=== PATIENT | male | born 1985 | race African-American/Black ===

== ENCOUNTER 2022-01-12 19:05 | Emergency (ER) | payer MEDICAID ==
[~2022-01-12] VITALS: Ht 180.3 cm; Wt 70.0 kg
[2022-01-12] MEDS ORDERED: KETOROLAC 60MG/2ML VIAL IM ONE (19:15)
[2022-01-12] MEDS ORDERED: TETANUS, DIPHTHERIA, PERTUSSIS VAC/PF 0.5ML (>10YR OLD) IM ONE (19:15)
[2022-01-12] MEDS ORDERED: AMOX1TAB16 MT (20:03)
[2022-01-12] MEDS ORDERED: IBUP-2029 MT (20:03)
[2022-01-12 20:58] VITALS: BP 128/68
== END 2022-01-12 21:21 | disposition home or self-care (01) ==
LOC: ER 19:05
DX: S61.451A Open bite of right hand, initial encounter (principal); M94.0 Chondrocostal junction syndrome [Tietze]; W54.0XXA Bitten by dog, initial encounter; Y93.89 Activity, other specified; Y92.89 Other specified places as the place of occurrence of the external cause
CPT/HCPCS: 73130; 90471; 90715; 96372; 99284; J1885